=== PATIENT | female | born 1990 | race Caucasian/White ===

== ENCOUNTER 2017-11-21 15:05 | Outpatient (REF) | payer MEDICAID, SELFPAY ==
[2017-11-21 22:13] LABS: HCT 44.5 % (36.0-46.0); HGB 15.6 g/dL (12.0-15.5); Mean Corp. HGB Concentration 35.1 g/dL (32.0-36.0); Mean Corpuscular Hemoglobin 34.1 pg (27.0-33.0); Mean Corpuscular Volume 97.4 fL (80-95); Mean Platelet Volume 8.6 fL (8.0-11.0); Platelet Count 406 x1000/uL (130-400); RBC 4.57 m/cumm (4.00-5.20); RBC Distribution Width 13.9 % (11.7-14.6); White Blood Cell Count 13.47 k/cumm (4.4-10.8)
== END 2017-11-21 15:25 ==
LOC: NCHCN 15:05
PROVIDERS: PCP Nurse Practitioner Family; Visit Provider Nurse Practitioner Family
DX: K92.1 Melena (principal)
CPT/HCPCS: 85027

== ENCOUNTER 2017-12-02 20:51 | Outpatient (REF) | payer MEDICAID, SELFPAY | END 2017-12-02 21:11 | LOC: NCHCN 20:51 | PROVIDERS: PCP Nurse Practitioner Family; Referring Provider Nurse Practitioner Family; Visit Provider Nurse Practitioner Family | DX: K92.1 Melena (principal) | CPT/HCPCS: 82272 ==

== ENCOUNTER 2017-12-07 09:44 | Outpatient (REF) | payer MEDICAID, SELFPAY | END 2017-12-07 10:04 | LOC: NCHCN 09:44 | PROVIDERS: PCP Nurse Practitioner Family; Visit Provider Nurse Practitioner Family | DX: K92.1 Melena (principal) | CPT/HCPCS: 82272 ==

== ENCOUNTER 2018-11-01 15:51 | Outpatient (REF) | payer MEDICAID, SELFPAY ==
[2018-11-02 05:16] LABS: Abs Immature Grans 0.06 k/cumm (0.0-0.09); Absolute Basophil Count 0.05 k/cumm (0.0-0.2); Absolute Eosinophil Count 0.33 k/cumm (0.0-0.7); Basophils % 0.3; Eosinophils % 2.1; HCT 47.2 % (36.0-46.0); HGB 16.4 g/dL (12.0-15.5); Immature Grans % 0.4; Lymphocytes % 28.3; Mean Corp. HGB Concentration 34.7 g/dL (32.0-36.0); Mean Corpuscular Hemoglobin 33.9 pg (27.0-33.0); Mean Corpuscular Volume 97.5 fL (80-95); Monocytes % 4.1; Neutrophils % 64.8; Platelet Count 514 x1000/uL (130-400); RBC 4.84 m/cumm (4.00-5.20); RBC Distribution Width 13.9 % (11.7-14.6); White Blood Cell Count 15.74 k/cumm (4.4-10.8)
[2018-11-02 05:17] LABS: Absolute Lymphocyte Count 4.45 k/cumm (1.2-3.4); Absolute Monocyte Count 0.65 k/cumm (0.11-0.7)
[2018-11-02 05:52] LABS: ALT 34 U/L (14-59); AST 20 U/L (15-37); Albumin 3.7 g/dL (3.4-5.0); Alkaline Phosphatase 105 U/L (46-116); Anion Gap 10.1 mmol/L (3-11); BUN 8 mg/dL (7-18); Bilirubin, Total 0.4 mg/dL (0.2-1.0); CO2 28.9 mmol/L (21.0-32.0); CREATININE 0.87 mg/dL (0.55-1.02); Chloride 102 mmol/L (98-107); Glucose 70 mg/dL (70-100); Potassium 3.8 mmol/L (3.5-5.1); Sodium 141 mmol/L (136-145); TSH 1.23 uIU/mL (0.36-3.74); Total Protein 7.4 g/dL (6.4-8.2)
[2018-11-02 06:23] LABS: HCG Qual (Serum) Negative
== END 2018-11-01 16:11 ==
LOC: NCHCN 15:51
PROVIDERS: PCP Nurse Practitioner Family; Visit Provider Family Medicine
DX: R53.81 Other malaise (principal); R11.0 Nausea; N92.6 Irregular menstruation, unspecified; R78.89 Finding of other specified substances, not normally found in blood; E03.9 Hypothyroidism, unspecified
CPT/HCPCS: 80053; 84443; 84703; 85025

== ENCOUNTER 2018-11-03 10:55 | Outpatient (REF) | payer MEDICAID, SELFPAY ==
[2018-11-03 21:18] LABS: Abs Immature Grans 0.03 k/cumm (0.0-0.09); Absolute Basophil Count 0.03 k/cumm (0.0-0.2); Absolute Eosinophil Count 0.31 k/cumm (0.0-0.7); Absolute Lymphocyte Count 3.32 k/cumm (1.2-3.4); Absolute Monocyte Count 0.66 k/cumm (0.11-0.7); Basophils % 0.2; Eosinophils % 2.4; HCT 47.6 % (36.0-46.0); HGB 16.4 g/dL (12.0-15.5); Immature Grans % 0.2; Lymphocytes % 25.8; Mean Corp. HGB Concentration 34.5 g/dL (32.0-36.0); Mean Corpuscular Hemoglobin 33.6 pg (27.0-33.0); Mean Corpuscular Volume 97.5 fL (80-95); Mean Platelet Volume 8.9 fL (8.0-11.0); Monocytes % 5.1; Neutrophils % 66.3; Platelet Count 456 x1000/uL (130-400); RBC 4.88 m/cumm (4.00-5.20); RBC Distribution Width 13.8 % (11.7-14.6); White Blood Cell Count 12.85 k/cumm (4.4-10.8)
[2018-11-03 21:25] LABS: Absolute Neutrophil Count 8.52 k/cumm (1.2-6.7)
== END 2018-11-03 11:15 ==
LOC: NCHCN 10:55
PROVIDERS: PCP Nurse Practitioner Family; Visit Provider Family Medicine
DX: D72.829 Elevated white blood cell count, unspecified (principal); R10.31 Right lower quadrant pain
CPT/HCPCS: 85025

== ENCOUNTER 2020-03-19 18:29 | Outpatient (REF) | payer BC, SELFPAY ==
[2020-03-19 21:52] LABS: ALT 29 U/L (14-59); AST 19 U/L (15-37); Albumin 3.3 g/dL (3.4-5.0); Alkaline Phosphatase 112 U/L (46-116); Anion Gap 7.1 mmol/L (3-11); BUN 4 mg/dL (7-18); Bilirubin, Total 0.2 mg/dL (0.2-1.0); CO2 29.9 mmol/L (21.0-32.0); CREATININE 0.83 mg/dL (0.55-1.02); Calcium 9.2 mg/dL (8.5-10.1); Chloride 102 mmol/L (98-107); Glucose 84 mg/dL (74-106); Potassium 3.8 mmol/L (3.5-5.1); Sodium 139 mmol/L (136-145); TSH (W/Ref FT4) 5.19 uIU/mL (0.36-3.74); Total Protein 7.1 g/dL (6.4-8.2)
[2020-03-19 22:09] LABS: FREE T4 0.88 ng/dL (0.76-1.46)
== END 2020-03-19 18:49 ==
LOC: NCHCN 18:29
PROVIDERS: PCP Nurse Practitioner Family; Visit Provider Nurse Practitioner Family
DX: E03.9 Hypothyroidism, unspecified (principal); Z87.19 Personal history of other diseases of the digestive system; E66.9 Obesity, unspecified
CPT/HCPCS: 80053; 84439; 84443

== ENCOUNTER 2020-07-16 11:31 | Outpatient (REF) | payer BC, SELFPAY ==
[2020-07-16 14:38] LABS: TSH 1.82 uIU/mL (0.36-3.74)
== END 2020-07-16 11:32 | disposition home or self-care (01) ==
LOC: NCHCN 11:31
PROVIDERS: PCP Nurse Practitioner Family; Visit Provider Family Medicine
DX: E03.9 Hypothyroidism, unspecified (principal)
CPT/HCPCS: 84443

== ENCOUNTER 2020-11-19 10:08 | Outpatient (REF) | payer BC, SELFPAY ==
[2020-11-19 13:55] LABS: Abs Immature Grans 0.04 10^3/uL (0.0-0.06); Absolute Basophil Count 0.08 10^3/uL (0.0-0.2); Absolute Eosinophil Count 0.84 10^3/uL (0.0-0.7); Absolute Lymphocyte Count 3.73 10^3/uL (1.2-3.4); Basophils % 0.6; Eosinophils % 6.5; HCT 42.1 % (36.0-46.0); HGB 14.2 g/dL (11.2-15.7); Immature Grans % 0.3; MCHC 33.7 % (32.0-36.0); MCV 97.9 fL (80-95); MPV 8.9 fL (8.0-11.0); Monocytes % 4.7; Neutrophils % 58.9; Nucleated RBC 0 %; Platelet Count 432 10^3/uL (130-400); RDW 13.2 % (11.7-14.6); RDW-SD 46.7 fL; WBC 12.85 10^3/uL (4.4-10.8)
[2020-11-19 14:01] LABS: Absolute Neutrophil Count 7.57 10^3/uL (1.2-6.7)
[2020-11-19 14:10] LABS: ALT 26 U/L (14-59); AST 19 U/L (15-37); Alkaline Phosphatase 100 U/L (46-116); Amylase 31 U/L (25-115); Anion Gap 7.4 mmol/L (3-11); BUN 5 mg/dL (7-18); Bilirubin, Total 0.2 mg/dL (0.2-1.0); CO2 32.6 mmol/L (21.0-32.0); CREATININE 0.9 mg/dL (0.55-1.02); Chloride 103 mmol/L (98-107); Glucose 122 mg/dL (74-106); Lipase 51 U/L (73-393); Potassium 3.1 mmol/L (3.5-5.1); Sodium 143 mmol/L (136-145); Total Protein 6.6 g/dL (6.4-8.2)
[2020-11-20 01:54] LABS: COVID-19 RT-PCR UVMMC Result Negative (Negative)
== END 2020-11-19 10:09 | disposition home or self-care (01) ==
LOC: NCHCN 10:08
PROVIDERS: PCP Nurse Practitioner Family; Visit Provider Registered Nurse
DX: J06.9 Acute upper respiratory infection, unspecified (principal); R10.11 Right upper quadrant pain; Z20.822 Contact with and (suspected) exposure to COVID-19
CPT/HCPCS: 80053; 83690; U0003; 82150; 85025

== ENCOUNTER 2020-11-21 12:04 | Outpatient (REF) | payer BC, SELFPAY ==
[2020-11-21 13:39] LABS: Potassium 3.2 mmol/L (3.5-5.1)
[2020-11-21 13:58] LABS: Hemoglobin A1C 5.6 % (<5.7)
== END 2020-11-21 12:05 | disposition home or self-care (01) ==
LOC: NCHCN 12:04
PROVIDERS: PCP Nurse Practitioner Family; Visit Provider Family Medicine
DX: R73.9 Hyperglycemia, unspecified (principal); E87.6 Hypokalemia
CPT/HCPCS: 83036; 84132

== ENCOUNTER 2020-12-03 10:14 | Outpatient (REF) | payer BC, SELFPAY ==
[2020-12-03 20:10] LABS: Potassium 3.4 mmol/L (3.5-5.1)
== END 2020-12-03 10:15 | disposition home or self-care (01) ==
LOC: NCHCN 10:14
PROVIDERS: PCP Nurse Practitioner Family; Visit Provider Registered Nurse
DX: E87.6 Hypokalemia (principal)
CPT/HCPCS: 84132

== ENCOUNTER 2022-02-25 09:57 | Outpatient (REF) | payer BC, SELFPAY ==
--- NOTE | 2022-02-25 09:00 | PAPFT_PTH ---
PATIENT: Carey [place] LOC: [facility]#:[id number] AGE/SX: 31/F ROOM: RE02/25/[address]: Lucy Phelps : 1990 BED: DIS: 02/25/2022 SPEC #: [id number] RECD: 02/25/22 16:02 STATUS: LEILA REHemanth #: [id number] FRANK: 02/25/22 09:[address]: Lucy Phelps DEPT: [facility] Cytology RECD BY: Madison Gentile ENTERED: 02/25/22 16:03 SP TYPE: PAPFT OTHR DR: Miya Bashir Tissues: 1 - CX/ENDOCX FOR PAP SMEARS Procedures: PAP THIN PREP/[facility] Screening HPV DNA PROBE Comments: [id number] (CHLAMYDIA/GC)
[2022-02-25 14:58] LABS: Anion Gap 4.8 mmol/L (3-11); BUN 4 mg/dL (7-18); CO2 35.2 mmol/L (21.0-32.0); CREATININE 0.9 mg/dL (0.55-1.02); Chloride 100 mmol/L (98-107); Estimated GFR 87.11 (mL/min/1.73m2); Glucose 115 mg/dL (74-106); Potassium 3.2 mmol/L (3.5-5.1); Sodium 140 mmol/L (136-145); TSH 3.66 uIU/mL (0.36-3.74)
[2022-02-26 09:50] LABS: HIV-1/2 Ag & Ab Screen Negative (Negative)
[2022-02-26 10:07] LABS: Hepatitis C Ab w Rflx HCV PCR Negative (Negative)
[2022-02-26 14:40] LABS: Chlamydia Result Negative (Negative); GC Result Negative (Negative)
== END 2022-02-25 09:58 | disposition home or self-care (01) ==
LOC: NCHCN 09:57
PROVIDERS: PCP Nurse Practitioner Family; Visit Provider Family Medicine
DX: E03.9 Hypothyroidism, unspecified (principal); Z11.4 Encounter for screening for human immunodeficiency virus [HIV]; E87.6 Hypokalemia; Z11.59 Encounter for screening for other viral diseases; Z12.4 Encounter for screening for malignant neoplasm of cervix; Z11.51 Encounter for screening for human papillomavirus (HPV)
CPT/HCPCS: 80048; 86803; 87389; 87491; 87591; 88142; 84443; 87624

== ENCOUNTER 2024-05-21 14:55 | Outpatient (REF) | payer BC, SELFPAY ==
[2024-05-21 21:26] LABS: Abs Immature Grans 0.08 10^3/uL (0.0-0.06); Absolute Basophil Count 0.13 10^3/uL (0.0-0.2); Absolute Lymphocyte Count 4.88 10^3/uL (1.2-3.4); Absolute Monocyte Count 0.77 10^3/uL (0.1-0.8); Absolute Neutrophil Count 7.89 10^3/uL (1.2-6.7); Basophils % 0.9 %; Eosinophils % 1.9 %; HCT 53.2 % (36.0-46.0); HGB 17.4 g/dL (11.2-15.7); Immature Grans % 0.6 %; Lymphocytes % 34.8 %; MCH 33.1 pg (27.0-33.0); MCHC 32.7 % (32.0-36.0); MCV 101 fL (80-95); MPV 8.7 fL (8.0-11.0); Monocytes % 5.5 %; Neutrophils % 56.3 %; Platelet Count 360 10^3/uL (130-400); RBC 5.26 10^6/uL (3.93-5.22); RDW 14.9 % (11.7-14.6); WBC 14.01 10^3/uL (4.4-10.8)
[2024-05-21 21:27] LABS: Absolute Eosinophil Count 0.27 10^3/uL (0.0-0.7)
[2024-05-21 21:29] LABS: Anion Gap 4.6 mmol/L (3-11); CO2 33.4 mmol/L (21.0-32.0); Chloride 101 mmol/L (98-107); Sodium 139 mmol/L (136-145)
== END 2024-05-21 14:56 | disposition home or self-care (01) ==
LOC: NCHCN 14:55
PROVIDERS: PCP Nurse Practitioner Family; Visit Provider Family Medicine
DX: R30.0 Dysuria (principal); D72.829 Elevated white blood cell count, unspecified; R82.89 Other abnormal findings on cytological and histological examination of urine
CPT/HCPCS: 80051; 85025; 87086